=== PATIENT | male | born 1990 | race Caucasian/White ===

== ENCOUNTER 2021-10-21 06:15 | Emergency (ER) | payer OTHER, SELFPAY ==
[2021-10-21 06:18] VITALS: BP 166/74; PULSE 125; RESP 22; TEMP 37.8; O2SAT 96; BMI 34.7
--- NOTE | 2021-10-21 06:39 | EKG12_ITS ---
Test Reason : DYSRHYTHMIA Blood Pressure : / mmHG Vent. Rate : 126 BPM Atrial Rate : 126 BPM P-R Int : 152 ms QRS Dur : 098 ms QT Int : 302 ms P-R-T Axes : 053 056 037 degrees QTc Int : 437 ms Sinus tachycardia with Premature supraventricular complexes Otherwise normal ECG Confirmed by KATLYN PANTOJA, RAJEEV ([id number]), electronic news gathering editor VICTORINO MCLAUGHLIN ([id number]) on 10/25/2021 10:38:58 AM Referred By: TALIB Confirmed By:RAJEEV POTTS MD
[2021-10-21] MEDS: 0.9% Normal Saline 1,000 ML 999 ML IV (06:46)
--- NOTE | 2021-10-21 06:47 | EX.ED.DYSGE1 ---
HPI History of Present Illness Chief Complaint: Palpitations Narrative Narrative: Patient is a 31-year-old male with past medical history of anxiety and GERD. He states he takes citalopram nightly for his anxiety and he reports he has been taking it as directed without any missed doses. He states he went to bed feeling overall normal last night and then awoke from sleep this morning with his heart racing. He states that he drinks 1 to 2 cups of coffee a day but he denies any excessive caffeine or stimulant use or illicit drug use. He reports he was getting ready for work and as he was driving there for like his palpitations were worsening and therefore he comes in for evaluation. Patient denies any history of cardiac dysrhythmia. He denies any history of thyroid disorder. He denies any history of DVT/PE but does report recent travel just a few days ago. He also states that he felt feverish this morning and therefore took Tylenol prior to arrival and states that he is also had a slight cough for the past 1 to 2 days PFSH [facility] Medical History Anxiety Depression Former smoker GERD (gastroesophageal reflux disease) Smoker Home Medications citalopram 20 mg tablet (Celexa) 20 mg PO DAILY 10/21/21 [History Last Taken Unknown] dexamethasone 6 mg tablet (Decadron) 6 mg PO DAILY 10 days #10 tabs 10/21/21 [Rx Last Taken Unknown] Allergy/AdvReac Type Severity Reaction Status Date / Time Sulfa (Sulfonamide Allergy Rash Verified 10/21/21 06:17 Antibiotics) Social History Smoking Status: Current every day smoker tobacco type: e-cigarettes ROS ROS ED Constitutional Constitutional ED: Reports fever(s); Denies chills ENT ENT ED: Denies sore throat Cardiovascular Cardiovascular: Reports palpitations and racing heartbeat; Denies chest pain Respiratory/Chest Respiratory/Chest: Reports cough; Denies dyspnea Gastrointestinal Gastrointestinal: Denies abdominal pain, diarrhea, nausea or vomiting Genitourinary Genitourinary ED: Denies dysuria Musculoskeletal Musculoskeletal: Denies myalgias Integumentary Denies rash Neurologic Neurologic: Denies headache(s) Psychiatric Psychiatric: Reports anxiety Hematologic/Lymphatic Hematologic/Lymphatic: Denies easy bleeding or easy bruising EXAM Physical Exam Const Vital Signs: 10/21/21 06:18 10/21/21 06:24 10/21/21 06:51 Temperature 100.0 F H Temperature Source Oral Pulse Rate 125 H 93 Respiratory Rate 22 H 24 H Respiratory Effort Normal Respiratory Pattern Normal Blood Pressure 166/74 H 160/82 H Blood Pressure Mean 104 108 Pulse Ox 96 94 Oxygen Delivery Method Room Air Room Air Positive well nourished and well developed General Appearance ED: well developed HEENT Reports moist mucous membranes HEENT Narrative: Cobblestoning the posterior pharynx consistent with sinus drainage without airway edema or compromise Eyes PERRL and EOMs intact bilaterally Neck supple and no JVD Neck Narrative: No obvious thyroid enlargement no nodule or goiter present Resp normal respiratory effort Resp Narrative: Breath sounds are diminished throughout but overall clear to auscultation without nasal flaring retractions or accessory muscle use Cardio regular rhythm Rate: tachycardic and other Other Details: Radial pulses are +2-4 bilaterally are equal and symmetric GI normal to inspection, nondistended, normoactive bowel sounds, non-tender and non-distended GI Narrative: No voluntary guarding or rigidity no pulsatile mass Auscultation: normoactive bowel sounds Palpation: soft Extremity normal to inspection Extremity Narrative: No asymmetric edema no pitting edema negative Homans' sign bilaterally Neuro oriented x3 and CN's II-XII intact bilaterally Sensorium / Orientation: alert Motor Exam: strength 5/5 throughout Psych Psych Narrative: Patient has a nervous/anxious affect Skin no rashes or lesions noted MDM MDM MDM Narrative Medical decision making narrative: Patient presented to the ER tachycardic with a low-grade temperature. He reported taking Tylenol prior to coming in and therefore his temperature was most likely higher prior to arrival. Patient does not have a history of any type of cardiac dysrhythmia and he is just in sinus tachycardia here not A. fib a flutter SVT but with his low-grade fever and tachycardia basic work-up will be obtained to check for another possible cause for the fast heart rate other than temperature. The patient's labs revealed no clinically significant findings and chest x-ray revealed no acute lung pathology. He was given IV fluids and ibuprofen and the heart rate reduced to a normal value of 80-90 and patient remained in no acute respiratory distress. At this time as the patient is not requiring supplemental oxygen does not have electrolyte derangements or need for blood transfusion or cardiac dysrhythmia there is no need for admission to the hospital and patient can be discharged and advised to control his fever. Lab Data Attestation: I reviewed the patient's lab results. Labs: Laboratory Results - last 24 hr 10/21/21 10/21/21 10/21/21 06:42 06:42 06:42 WBC 9.0 RBC 5.01 Hgb 15.4 Hct 44.2 MCV 88.2 MCH 30.7 MCHC 34.8 RDW Std Deviation 39.7 RDW Coeff of Manuela 12.3 Plt Count 292 MPV 9.6 Immature Gran % (Auto) 1.100 H Neut % (Auto) 76.0 H Lymph % (Auto) 9.0 L [place] % (Auto) 11.6 H Eos % (Auto) 1.7 Baso % (Auto) 0.6 Absolute Neuts (auto) 6.8 Absolute Lymphs (auto) 0.81 L Nucleated RBC % 0 D-Dimer Quant (PE/DVT) 0.27 Sodium 141 Potassium 3.5 Chloride 111 H Carbon Dioxide 21.0 Anion Gap 9 BUN 20 H Creatinine 1.21 Estim Creat Clear Calc 90.50 Est GFR (MDRD) Af Amer 89 Est GFR (MDRD) Non-Af 74 BUN/Creatinine Ratio 16.5 Glucose 125 H Calcium 9.3 Magnesium 2.1 TSH 0.70 Radiography Diagnostic Testin view chest x-ray as interpreted by the emergency medicine physician reveals no acute infiltrate pneumothorax or pleural effusion Discharge Plan Triage Chief Complaint: Palpitations ED Provider: Jhon Haq Dx/Rx/DC Orders Clinical Impression: Pyrexia, Viral illness Instructions: ED Fever Control (Adult), ED Viral Syndrome (Adult) Prescriptions: New dexamethasone [Decadron] 6 mg tablet 6 mg PO DAILY 10 Days Qty: 10 0RF No Action citalopram [Celexa] 20 mg Tablet 20 mg PO DAILY Primary Care Provider: Care Physician,No Primary Referrals: Smith Claudio MD [Med Staff - [employer] As[employer]er] - 1 Week if not improving Care Physician,No Primary [Primary Care Provider] - Activity Restrictions/Additional Instructions: Please control your temperature with Tylenol and/or Motrin and take the Decadron as directed to reduce inflammation. Please return to the ER should you have any further concerns Disposition Disposition: Home, Self Care
[2021-10-21] MEDS: Ibuprofen 600 MG Tablet PO (06:48)
[2021-10-21 06:51] VITALS: BP 160/82; PULSE 93; RESP 24; O2SAT 94
[2021-10-21 06:51] LABS: Absolute Lymphocyte Count 0.81 X10^3/uL (0.83-4.51); Absolute Neutrophil Count 6.8 X10^3/uL (2.0-7.7); Basophil# 0.05 X10^3/uL; Basophil% 0.6 % (0-1); Eosinophil# 0.15 X10^3/uL; Eosinophils% 1.7 % (0-5); Hematocrit 44.2 % (40-54); Hemoglobin 15.4 g/dL (13.0-16.5); Lymphocyte # 0.81 X10^3/ul (0.83-4.51); Mean Corp Hgb Conc 34.8 g/dL (32-36); Mean Corpuscular Hgb 30.7 pg (27.0-32.0); Mean Corpuscular Volume 88.2 fL (80-94); Mean Platelet Vol. 9.6 fl (6.2-12.0); Monocyte# 1.04 X10^3/uL; Monocyte% 11.6 % (0-10); NRBC Flagged by Analyzer 0 % (0-5); Neutrophil # 6.83 X10^3/uL (2.7-7.7); Platelet Count 292 K/mm3 (150-450); RBC Distribution Width CV 12.3 % (11.6-14.6); RBC Distribution Width SD 39.7 fl (35.1-43.9); Red Blood Count 5.01 M/mm3 (4.6-6.2)
[2021-10-21 07:04] LABS: D-Dimer Quantitative (DVT/PE) 0.27 FEU/ug/m (0.27-0.49)
--- NOTE | 2021-10-21 07:05 | RAD_ITS ---
STUDY: X-RAY CHEST REASON FOR EXAM: Male, 31 years old. cough TECHNIQUE: Single AP portable view of the chest. COMPARISON: None. FINDINGS: No focal infiltrates or effusions. No pneumothorax. Normal size heart. Normal mediastinum and jill. Normal visualized pulmonary arteries. Normal visualized aortic arch and descending thoracic aorta. Normal visualized thoracic spine. Normal visualized ribs, clavicles, and shoulders. There is no demonstrated abnormality of the visualized soft tissue structures of the upper abdomen. RAD/Chest 1 View (Portable) IMPRESSION: Normal x-ray examination of the chest. Electronically Signed: Jake Pisano MD at 7:30 EDT Reading Location ID and State: [id number] / , Service support ,
[2021-10-21 07:13] LABS: Anion Gap 9 (5-15); BUN 20 mg/dL (7-18); BUN/Creat Ratio 16.5 RATIO (10-20); Calcium,Total 9.3 mg/dL (8.5-10.1); Chloride 111 mmol/L (98-107); Creatinine, Serum 1.21 mg/dL (0.70-1.30); EST Glomerular Filtration Rate 74 mL/min (>60); Est Glom Filt Rate - Afr Amer 89 mL/min (>60); Glucose 125 mg/dL (74-106); Magnesium 2.1 mg/dL (1.6-2.6); Potassium 3.5 mmol/L (3.5-5.1); Sodium Level 141 mmol/L (136-145)
[2021-10-21 08:08] VITALS: BP 131/65; PULSE 78; RESP 18; O2SAT 93
== END 2021-10-21 08:09 | disposition home or self-care (01) ==
PROVIDERS: Emergency Provider Emergency Medicine; Visit Provider Emergency Medicine
DX: B34.9 Viral infection, unspecified (principal); F41.9 Anxiety disorder, unspecified; F17.290 Nicotine dependence, other tobacco product, uncomplicated; F32.A Depression, unspecified; Z79.899 Other long term (current) drug therapy; K21.9 Gastro-esophageal reflux disease without esophagitis; R05.9 Cough, unspecified; R00.2 Palpitations; R50.9 Fever, unspecified
CPT/HCPCS: 71045; 80048; 83735; 84443; 85025; 85379; 87428; 93005; 96360; 99284; J7030; A4216